=== PATIENT | male | born 1950 | race Caucasian/White ===

== ENCOUNTER 2019-07-14 05:38 | Day surgery (SDC) | payer OTHER ==
[~2019-07-14] VITALS: Ht 180.3 cm; Wt 147.9 kg
[~2019-07-14 05:38] MED LIST: ASPIR 8181 MG PO; CO Q-10100 MG PO; LIPITOR 20 MG T20 M1 PO; MAXZIDE-25 MG1 EACH PO; MULTI VITAMIN1 EACH PO; OCUVITE TABLET1 EAC1 PO; OMEPRAZOLE20 M1 PO; PRESERVISION A1 EACH PO; RESTASIS1 EACH OPHTHALMIC; TOPROL XL100 MG PO; VITAMINC500 PO
[2019-07-14 06:35] LABS: CALCIUM 9.5 mg/dL (8.5-10.1); CREATININE 1.2 mg/dL (0.7-1.3); POTASSIUM 3.7 mmol/L (3.5-5.1)
[2019-07-14 07:30] VITALS: BP 152/70
--- NOTE | 2019-07-18 06:11 | O ---
[facility] [address] OPERATIVE REPORT Name: CRISPIN CORONADO JR Room #: DEP [facility]#: [id number] Admission: 07/14/19 Attend Phys: Nico Howell MD Discharge: 07/14/19 Date of : 52 Report #: [id number] THIS REPORT FOR: //name// CC: Dr. Radha LUNA MD Physician staff Nico Howell DATE OF SERVICE: 07/14/2019 PREOPERATIVE DIAGNOSIS: Basal cell carcinoma of the left lower lid. POSTOPERATIVE DIAGNOSIS: Basal cell carcinoma of the left lower lid. PROCEDURE: Excision of basal cell carcinoma of the left lower lid with frozen section, control of margins and myocutaneous flap repair of defect. SURGEON: Nico Howell MD [employer]: None. ANESTHESIA: MAC. COMPLICATIONS: None. INDICATIONS FOR SURGERY: This pleasant 69-year-old gentleman has a biopsy proven basal cell carcinoma in his left lower lid. He presents today for excision of this lesion with frozen sections and subsequent repair of that defect. Informed consent was obtained to include but not limited to the potential risk for loss of vision, bleeding, infection, failure to improve the problem, the potential need for further surgery or treatment. DESCRIPTION OF PROCEDURE: The patient was taken to the operating room where 2% Xylocaine with epinephrine mixed with equal parts of 0.75% Marcaine with Wydase was administered transcutaneously and transconjunctivally to the left lower lid, the left lateral canthus and the left cheek. The patient was subsequently prepped and draped in the usual sterile fashion. A fine tip skin marking pen was then utilized to outline the lesion including 1-2 mm of normal appearing tissue. The incisions were then made perpendicularly across the eyelid margin and drawn down to a point in the premalar space. The specimen was then placed on a drawing for the waiting pathologist as hemostasis was achieved in the field with diligent pinpoint monopolar cautery. The pathologist snap froze that tissue examining the margins and found that the basal cell carcinoma was completely excised and the margins were clear. [address] [address] OPERATIVE REPORT Name: CRISPIN CORONADO JR Room #: DEP [facility].#: [id number] Admission: 07/14/19 Attend Phys: Nico Howell MD Discharge: 07/14/19 Date of : 52 Report #: [id number] A myocutaneous flap was then developed laterally to be rotated more medially to correct the defect in the left lower lid. Hemostasis was then re-achieved. The flap was then advanced and secured with multiple interrupted 5-0 Vicryl sutures deep. The tarsal plate was reapproximated with interrupted 5-0 Vicryl sutures. The eyelid margin was then reapproximated with interrupted 7-0 Vicryl sutures. The subcutaneous structures more superficially were closed with interrupted buried Vicryl sutures. The skin was then closed with 6-0 plain gut sutures. The wounds were then cleaned and dressed with erythromycin ointment. The patient subsequently transported to the recovery area having tolerated the procedure well with no anesthetic or operative complications being noted. <ELECTRONICALLY SIGNED> By: Nico Howell MD 07/18/19 0611 [id number] Nico Howell MD /nt
--- NOTE | 2019-07-18 08:11 | PATH ---
[facility] [place] [address] PATHOLOGY RPT PROCEDURE Name: CRISPIN CORONADO JR Room #: [facility]#: [id number] Admission: 07/14/19 Date of : 52 Discharge: 07/14/19 Report #: [id number] Path Case #: [id number] [facility] Accession Number: [id number] . 01 Material submitted: . eyelid - LEFT LOWER LID BASAL CELL CARCINOMA - FS. Modifiers: left, lower . 02 Frozen section diagnosis: . FROZEN SECTION DIAGNOSIS: (Dr. Darby Clark) FSA1. Skin, left lower lid carcinoma, excision: - No definite invasive carcinoma at margins on FS slides. . These findings are discussed with Dr. Nico Howell in OR 6 at [facility] and a written report is placed in the patient's chart. (IUV:pit; 07/14/2019) . FROZEN SECTION GROSS DESCRIPTION: The specimen is received fresh from the OR labeled with the patient's name, and "left lower lid carcinoma", consists of an oriented inverted triangular specimen measuring 0.5 x 0.7 x 0.3 cm. The lateral margin, including the deep margin, is inked black. The inferior half of the medial margin is inked blue and the superior half of the medial margin is inked green. At this point the specimen is sectioned into three pieces and submitted for frozen section entirely as FSA1, this is subsequently submitted for permanent sections as A1. (IUV:pit; 07/14/2019) . Frozen section performed at [facility], [address] , [place] [address]. IZV/QTP . 02 Diagnosis: Skin, left lower lid basal cell carcinoma, excision: - BASAL CELL CARCINOMA. - MARGINS OF RESECTION FREE OF MALIGNANCY. (IUV/db; 07/15/2019) LBQ 07/15/2019 1111 Local . 02 Electronically signed: . Darby Clark MD, Pathologist NPI- [id number] . 02 Pathologist provided ICD-10: C44.1192 . 02 CPT . [facility] [address] [place] [address] PATHOLOGY RPT PROCEDURE Name: CRISPIN CORONADO JR Room #: DEP [facility] MPedro#: [id number] Admission: 07/14/19 Date of : 52 Discharge: 07/14/19 Report #: [id number] Path Case #: [id number] Specimen Comment: A courtesy copy of this report has been sent to Specimen Comment: [phone], . Specimen Comment: Report sent to / DR LUNA Specimen Comment: A duplicate report has been generated due to demographic updates. Performed at: [address] [facility], [place] [id number] MD Reddy Garay MD Phone: [phone] Performed at: [address] [facility] [address] [id number] MD Darby Clark MD Phone: [phone]
== END 2019-07-14 09:15 | disposition home or self-care (01) ==
LOC: OR 05:38 → TBA 05:39 → OR 09:15
PROVIDERS: Anesthesiology
DX: C44.1192 Basal cell carcinoma of skin of left lower eyelid, including canthus (principal); I10 Essential (primary) hypertension; E78.5 Hyperlipidemia, unspecified; K21.9 Gastro-esophageal reflux disease without esophagitis; Z90.49 Acquired absence of other specified parts of digestive tract; Z98.890 Other specified postprocedural states; Z79.899 Other long term (current) drug therapy; Z85.828 Personal history of other malignant neoplasm of skin; Z87.442 Personal history of urinary calculi; Z91.041 Radiographic dye allergy status; Z88.6 Allergy status to analgesic agent; Z79.82 Long term (current) use of aspirin
CPT/HCPCS: 50010; 50101; 50386; 50398; 51636; 56528; 56531; 62110; 62850; 70005